=== PATIENT | female | born 1955 | race Caucasian/White ===

== ENCOUNTER → 2016-10-03 | Outpatient (CLI) | payer BC ==
[~2016-10-03] MED LIST: ACT/45 PO; AMLO-114 PO; ASPI325T39 PO; ASPI81TA28 PO; ATOR-24 PO; CETI10TA84 PO; CLOP1TAB15 PO; FERR324T4 PO; FLV1 PO; GABA-113 PO; GABA1CAP PO; GLIP-197 PO; HYDR-5688 PO; ISOS60TA25 PO; LANS30CA41 PO; METF850T PO; METO25TA3 PO; NITR0.4S UT; ROSU20TA PO; SERT50TA PO; TAMO20TA9 PO; VALS320T2 PO; ZOLP1TAB PO
--- NOTE | 2016-10-03 15:07 | MAMMOGRAPHY REPORT ---
UNILATERAL RIGHT DIGITAL SCREENING MAMMOGRAM TOMOSYNTHESIS WITH CAD: 10/03/2016 CLINICAL HISTORY: Asymptomatic. Personal history of breast cancer. TECHNIQUE: Breast tomosynthesis in addition to standard 2D mammography was performed. Current study was also evaluated with a Computer Aided Detection (CAD) system. Right CC and MLO 2-D and tomosynt hesis images were obtained. COMPARISON: Comparison is made to exams dated: 10/03/2015 mammogram, 09/28/2014 mammogram, 08/24/2013 mammogram, 04/01/2012 mammogram, 12/27/2010 mammogram, and 08/02/2009 mammogram - [facility]. BREAST COMPOSITION: The tissue of the right breast is almost entirely fatty. FINDINGS: No suspicious masses, calcifications, or areas of architectural distortion are noted in t he right breast. There has been no significant interval change compared to prior exams. IMPRESSION: ACR BI-RADS CATEGORY 1: NEGATIVE There is no mammographic evidence of malignancy. A 1 year screening mammogram is recommended. The p atient will receive written notification of the results. Approximately 10% of breast cancers are not detected with mammography. A negative mammographic repor t should not delay biopsy if a clinically suggestive mass is present. Niharika Ford M.D. ah/:10/03/2016 12:50:39 Counter Top Assembler: Jerilyn CORDERO)(M), [facility] letter sent: Normal 1/2 BI-RADS Code: ACR BI-RADS Category 1: Negative
== END | disposition home or self-care (01) ==
LOC: C.MAMM 08:36
PROVIDERS: ATTEND Obstetrics & Gynecology
DX: Z12.31 Encounter for screening mammogram for malignant neoplasm of breast (principal); Z85.3 Personal history of malignant neoplasm of breast

== ENCOUNTER → 2017-02-05 | Outpatient (CLI) | payer BC ==
[~2017-02-05] MED LIST changes: +TAMO20TA47 PO; -TAMO20TA9 PO
== END | disposition home or self-care (01) ==
LOC: C.RDSM 15:00
PROVIDERS: ATTEND Orthopaedic Surgery Sports Medicine
DX: R52 Pain, unspecified (principal)

== ENCOUNTER → 2017-02-14 | Day surgery (SDC) | payer BC ==
[2017-02-06 09:37] VITALS: Ht 162.6 cm; Wt 120.5 kg
[~2017-02-14] VITALS: Ht 162.6 cm; Wt 120.5 kg
[~2017-02-14] MED LIST changes: -ASPI81TA28 PO; +ATROPINE SULFATE 0.1 MG/ML 5ML SYR IV PRN; +BUPIVACAINE 0.5 % 5 MG/1 ML PF 10ML VIAL ONE; +BUPIVACAINE/EPINEPHRINE 0.5% MPF 1:200,000 10 ML VIAL ONE; +CEFAZOLIN 3000 MG/65 ML D5W 65 ML IV SCH; +FENTANYL CITRATE INJ 50 MCG/1 ML 2 ML VIAL IV PRN; +FENTANYL CITRATE INJ 50 MCG/1 ML 2 ML VIAL ONE; -FERR324T4 PO; -GABA1CAP PO; -HYDR-5688 PO; +LABETALOL HCL IV 5 MG/ML 20ML IV PRN; +LACTATED RINGER'S 1000ML 1,000 ML IV SCH; +LIDOCAINE HCL 1% 20 ML VIAL ONE; +LIDOCAINE HCL 2% 2 ML VIAL (20MG/ML) ONE; +MIDAZOLAM HCL 1 MG/ML 2ML VIAL ONE; +MoRPHine SULFATE 2 MG/ML CARP IV PRN; +MoRPHine SULFATE 4 MG/ML 1 ML CARP\\VIAL IV PRN; +ONDANSETRON INJ 2 MG/ML 2 ML VIAL IV PRN; +OXYCODONE/ACETAMINOPHEN 5-325 TAB PO PRN; +PROPOFOL IV EMULSION 10 MG/ML 20 ML VIAL IV ONE; -ROSU20TA PO
--- NOTE | 2017-02-14 10:23 | History & Physical Bridge - SC ---
H&P Re-Evaluation Bridge Note: I have examined the patient, reviewed the History & Physical and in the interval since the performance of the History & Physical I have noted the following changes of clinical significance: No changes noted
--- NOTE | 2017-02-14 11:09 | [facility] Post Operative Brief Note ---
Immediate Operative Summary Operative Date Feb 14, 2017. Pre-Operative Diagnosis Right Ring Finger Trigger Digit Post-Operative Diagnosis Same Procedure(s) Performed Right Ring Finger Trigger Digit Release Surgeon Dr. Aguilar Senior Science Consultant Surgeon(s) Dr. Asencio Estimated Blood Loss 2 ml Findings Thickened R RF A1 felicita. Fluids (cc crystalloids) 300 Specimens Same Drains n/a Anesthesia Local + sedation Complication(s) None Disposition Recovery Room / PACU (Stable)
--- NOTE | 2017-02-14 11:13 | Discharge Instructions-SurgCtr ---
Discharge Instructions Date of Service Feb 14, 2017. Visit Reason for Visit: Right Ring Finger Trigger Digit Discharge Discharge Diagnosis / Problem: S/P Right Ring Finger Trigger release Discharge Goals Goal(s): Decrease discomfort, Improve function, Increase independence Medications Stopped Medications Name(s): Plavix, ASA and Metformin last taken 02/10/17 Activity Recommendations Activity Limitations: per Instructions/Follow-up section May Resume Sexual Activity: when tolerated Shower/Bathe: may shower/bathe in 3 days Driving or Machine Use: Not while on Narcotics Anesthesia . Post Anesthesia Instructions: If you have had General Anesthesia or IV Sedation: * Do not drive today. * Resume driving when surgeon permits. * Do not make important decisions or sign legal documents today. * Call surgeon for: 1. Temperature elevations greater than 101 degrees F. 2. Uncontrollable pain. 3. Excessive bleeding. 4. Persistent nausea and vomiting. 5. Medication intolerance (nausea, vomiting or rash). * For nausea and vomiting use only clear liquids such as: tea, soda, bouillon until nausea subsides, then gradually increase diet as tolerated. * If you have any concerns or questions, call your surgeon's office. If physician is unavailable and it is an emergency, call 911 or go to the nearest emergency room. . Instructions / Follow-Up Instructions / Follow-Up in 10-15 days. PT in 2-3 days. Diet Recommendations Home Diet: resume previous diet Procedures Procedures Performed: Right Ring Finger Trigger Digit Release Pending Studies Studies pending at discharge: no Medical Emergencies . Who to Call and When: Medical Emergencies: If at any time you feel your situation is an emergency, please call 911 immediately. . Non-Emergent Contact Non-Emergency issues call your: Surgeon Call Non-Emergent contact if: temperature is above 101.5, your pain is not controlled, wound has increased drainage, wound has increased redness . . "Provider Documentation" section prepared by Rafa Aguilar. .
--- NOTE | 2017-02-14 11:14 | [facility] Operative Report ---
Operative Report Operative Date Feb 14, 2017. Pre-Operative Diagnosis Right Ring Finger Trigger Digit Post-Operative Diagnosis Same Procedure(s) Performed Right Ring Finger Trigger Digit Release Surgeon Dr. Aguilar Assistant Nurse Manager Surgeon(s) Dr. Asencio Estimated Blood Loss 2 ml Findings Thickened R RF A1 felicita and adhesion between Flexor Superficialis and Deep tendons. Fluids (cc crystalloids) 300 Specimens Same Drains n/a Anesthesia Local + sedation Complication(s) None Disposition Recovery Room / PACU (Stable) Implants N/A Indications The patient is a 61 year old female with a painful right ring finger, trigger finger that has not responded to conservative treatment. The patient understands the risks of surgery, which include but are not limited to: bleeding , infection, re-operation, damage to nerves and arteries, and continued pain. The patient understands all of these instructions and explanations, all of their questions have been satisfactorily addressed. The patient has elected to proceed with surgery and the informed consent was signed. Description of Procedure The patient was taken to the Operating Room and placed in the supine position on the operating table. After a multidisciplinary time-out was performed identifying my initials on the right ring finger as the correct and operative limb, the patient agreed. Prior to the incision being made, 2 grams of intravenous Ancef were given. The right arm was prepped and draped in the usual Orthopaedic sterile fashion. 6 cc of a 50:50 mix of 1% Lidocaine and 0.5% Bupivacaine plain was injected along the planned incision and into the tendon sheath. After the local anesthetic had taken affect, a small 2 cm incision was made in miles crease. This was carried down to the A1 felicita of the right ring finger. The A1 felicita was incised and a small portion was excised for sample. The right angle clamp was used to deliver the flexor tendons into the wound. There was some adhesions along the flexor tendons which were gently removed. The tendon then glided without catching or locking. The patient was asked to move flex her ring finger and there was no catching or locking. The wound and tendon sheath were copiously irrigated. The skin was closed with 4-0 Nylon. The incision was covered with Xeroform, 4x4's, sterile cast padding and an MESERET. The sponge and needle counts were correct. I attest to the content of the Intraoperative Record and any orders documented therein. Any exceptions are noted below.
[2017-02-14 11:18] VITALS: TEMP 36.4
[2017-02-14 11:46] VITALS: BP 158/73; PULSE 54; O2SAT 99
--- NOTE | 2017-02-14 12:21 | Anesthesia Progress Nt - [facility] ---
Anesthesia Post Op Note Date & Time Feb 14, 2017 at 12:21 Vital Signs Pain Intensity: 0 Vital Signs Past 12 Hours Date Time Temp Pulse Resp B/P (MAP) Pulse Ox O2 Delivery O2 Flow Rate FiO2 02/14/17 11:46 54 18 158/73 (101) 99 Room Air 02/14/17 11:18 36.4 58 18 144/65 (91) 94 Room Air 02/14/17 09:50 36.6 55 16 126/70 (88) 94 Room Air Notes Mental Status: alert / awake / arousable, participated in evaluation Pt Amnestic to Procedure: Yes Nausea / Vomiting: adequately controlled Pain: adequately controlled Airway Patency, RR, SpO2: stable & adequate BP & HR: stable & adequate Hydration State: stable & adequate Anesthetic Complications: no major complications apparent
== END | disposition home or self-care (01) ==
LOC: X.SURG 09:21
PROVIDERS: ATTEND Orthopaedic Surgery Sports Medicine
DX: M65.341 Trigger finger, right ring finger (principal); I10 Essential (primary) hypertension; E78.5 Hyperlipidemia, unspecified; I25.10 Atherosclerotic heart disease of native coronary artery without angina pectoris; M06.9 Rheumatoid arthritis, unspecified; E66.9 Obesity, unspecified; Z85.3 Personal history of malignant neoplasm of breast; Z90.12 Acquired absence of left breast and nipple; Z90.49 Acquired absence of other specified parts of digestive tract; Z79.82 Long term (current) use of aspirin

== ENCOUNTER 2017-06-24 12:21 | Emergency (ER) | payer BC ==
[~2017-06-24] VITALS: Ht 162.6 cm; Wt 115.0 kg
[~2017-06-24 12:21] MED LIST changes: -ATROPINE SULFATE 0.1 MG/ML 5ML SYR IV PRN; -BUPIVACAINE 0.5 % 5 MG/1 ML PF 10ML VIAL ONE; -BUPIVACAINE/EPINEPHRINE 0.5% MPF 1:200,000 10 ML VIAL ONE; -CEFAZOLIN 3000 MG/65 ML D5W 65 ML IV SCH; -FENTANYL CITRATE INJ 50 MCG/1 ML 2 ML VIAL IV PRN; -FENTANYL CITRATE INJ 50 MCG/1 ML 2 ML VIAL ONE; -LABETALOL HCL IV 5 MG/ML 20ML IV PRN; -LACTATED RINGER'S 1000ML 1,000 ML IV SCH; -LANS30CA41 PO; -LIDOCAINE HCL 1% 20 ML VIAL ONE; -LIDOCAINE HCL 2% 2 ML VIAL (20MG/ML) ONE; -MIDAZOLAM HCL 1 MG/ML 2ML VIAL ONE; -MoRPHine SULFATE 2 MG/ML CARP IV PRN; -MoRPHine SULFATE 4 MG/ML 1 ML CARP\\VIAL IV PRN; -ONDANSETRON INJ 2 MG/ML 2 ML VIAL IV PRN; -OXYCODONE/ACETAMINOPHEN 5-325 TAB PO PRN; -PROPOFOL IV EMULSION 10 MG/ML 20 ML VIAL IV ONE; -TAMO20TA47 PO; +TAMO20TA9 PO
[2017-06-24 12:24] VITALS: TEMP 36.9; Ht 162.6 cm; Wt 115.0 kg
[2017-06-24] MEDS ORDERED: OPTIRAY 320 IV PRN (13:00)
--- NOTE | 2017-06-24 13:05 | DIAGNOSTIC IMAGING REPORT ---
CHEST ONE VIEW PORTABLE CLINICAL HISTORY: Acute change in mental status COMPARISON STUDY: 02/23/2014 FINDINGS: The heart is mildly enlarged. Slight interstitial prominence is likely related to technical factors given the patient's body habitus. There is no focal pulmonary consolidation. There are no pleural effusions.[ IMPRESSION: Mild cardiomegaly. No evidence of focal pulmonary consolidation Electronically signed by: Marshall You M.D. 06/24/2017 1:04 PM Dictated Date/Time: 06/24/2017 1:03 PM
[2017-06-24 13:53] LABS: BASO % 0.5 %; BASO ABS # 0.03 K/uL (0-0.2); EOS % 5.8 %; EOS ABS # 0.33 K/uL (0-0.5); HEMATOCRIT 35.3 % (37-47); HEMOGLOBIN 11.6 g/dL (12.0-16.0); IG# 0.01 K/uL (0.00-0.02); LYMPH % 38.8 %; LYMPH ABS # 2.22 K/uL (1.2-3.4); MEAN CELL VOLUME 84.2 fL (80-100); MEAN CORPUSCULAR HEMOGLOBIN 27.7 pg (25-34); MEAN CORPUSCULAR HGB CONC 32.9 g/dl (32-36); MEAN PLATELET VOLUME 10.1 fL (7.4-10.4); MONO % 13.6 %; MONO ABS # 0.78 K/uL (0.11-0.59); NEUT % 41.1 %; NEUT ABS # 2.35 K/uL (1.4-6.5); PLATELET COUNT 252 K/uL (130-400); RED CELL DISTRIBUTION WIDTH CV 15.3 % (11.5-14.5); RED CELL DISTRIBUTION WIDTH SD 47.1 fL (36.4-46.3); WHITE BLOOD COUNT 5.72 K/uL (4.8-10.8)
[2017-06-24 14:11] LABS: CALCIUM 8.4 mg/dl (8.5-10.1); CREATININE 0.89 mg/dl (0.60-1.20); POTASSIUM 3.5 mmol/L (3.5-5.1)
--- NOTE | 2017-06-24 14:45 | DIAGNOSTIC IMAGING REPORT ---
CT HEAD WITHOUT CONTRAST (CT) CLINICAL HISTORY: Headache and blurry vision COMPARISON STUDY: 02/23/2014 TECHNIQUE: Axial CT of the brain is performed from the vertex to the skull base. IV contrast was not administered for this examination. A dose lowering technique was utilized adhering to the principles of ALARA. CT DOSE: FINDINGS: No intra or extra-axial mass lesions are visualized. There is no CT evidence of acute cortical infarction. There is no evidence of midline shift. There is no acute hemorrhage. No calvarial fractures are visualized. There are minimal white matter hypodensities likely on a small vessel basis. There is no evidence of pathologic ventricular dilatation. There is no evidence of acute sinusitis. There is metallic artifact in the right medial temporal region, likely secondary to prior aneurysm endovascular occlusion. IMPRESSION: No acute intracranial findings Electronically signed by: Marshall You M.D. 06/24/2017 2:43 PM Dictated Date/Time: 06/24/2017 2:40 PM
--- NOTE | 2017-06-24 15:08 | DIAGNOSTIC IMAGING REPORT ---
CTA ANGIOGRAPHY OF THE HEAD CLINICAL HISTORY: Headache. Left-sided visual disturbance. COMPARISON STUDY: Head CT February 23, 2014 and June 24, 2017. TECHNIQUE: Helical axial images of the head were obtained following uneventful intravenous administration of 119 cc of Optiray 320. A dose lowering technique was utilized adhering to the principles of ALARA. FINDINGS: The CTA of the neck will be reported separately. Endovascular coils are noted within the right MCA aneurysm. Evaluation is difficult given streak artifact but no definite residual aneurysm filling is noted. The bilateral M1, M2, A1 and A2 segments are patent. No additional intracranial aneurysms are identified. Posterior circulation is also intact. No dissection is noted within the major intracranial vessels. No acute intracranial hemorrhage is identified on this contrast enhanced exam. There is mild mucosal thickening of the sinuses. IMPRESSION: 1. 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 2. No additional intracranial aneurysms. 3. Moderate atherosclerotic plaque within the bilateral cavernous carotids without significant stenosis. 4. No abrupt vessel cut off identified. Electronically signed by: Wero Castillo M.D. 06/24/2017 3:07 PM Dictated Date/Time: 06/24/2017 3:00 PM
--- NOTE | 2017-06-24 15:09 | DIAGNOSTIC IMAGING REPORT ---
CT NECK ANGIO WITH CONTRAST CLINICAL HISTORY: Headache. Blurry vision. Right carotid stenosis. COMPARISON STUDY: 02/26/2014 TECHNIQUE: CT angiography was performed from the aortic arch to the skull base. MIP imaging was performed. The patient was scanned in a dynamic helical fashion during intravenous administration of 119 cc of Optiray 320. A dose lowering technique was utilized adhering to the principles of ALARA. CT DOSE: 1191.82 mGy.cm Technique: CT angiogram of the carotid and vertebral arteries was obtained using intravenous contrast and 3-D reconstruction. NASCET criteria was utilized. Findings: There are minimal patchy airspace opacities within the right upper lobe, right inflammatory/postinflammatory. There There is a stent present with thin the right common carotid and proximal right internal carotid. Because of artifact from the stent wall and artifact from dense contrast within the right internal jugular vein, stent patency cannot be assessed. The common carotid is patent proximal to the stent and the internal carotid is patent distal to the stent. 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 There is no evidence of aneurysm. There is no evidence of dissection. There is no evidence of hemodynamically significant vertebral stenosis. There is no evidence of vertebral dissection. IMPRESSION: 1. No evidence of vertebral artery stenosis or dissection 2. No evidence of hemodynamically significant left internal carotid artery stenosis or dissection 3. There is a stent present within the right common carotid and proximal right internal carotid artery. Because of artifact from the stent wall and artifact from dense contrast within the right internal jugular vein, stent patency cannot be directly assessed. There is indirect evidence that the stent is patent, as contrast is visualized within the common carotid artery proximal to the stent, and within the internal carotid artery distal to the stent. Electronically signed by: Marshall You M.D. 06/24/2017 3:08 PM Dictated Date/Time: 06/24/2017 2:59 PM
[2017-06-24 16:00] VITALS: BP 112/64; PULSE 56; O2SAT 97
--- NOTE | 2017-06-24 19:13 | EMERGENCY ROOM VISIT NOTE ---
History Report prepared by Pippa: Pierce Gu Under the Supervision of: Dr. Jeffery Pérez D.O. First contact with patient: 12:29 Chief Complaint: REFERRED BY DOCTOR Stated Complaint: BLOCKAGE IN NECK DR REFERRED History of Present Illness The patient is a 62 year old female who presents to the Emergency Room with complaints of waxing and waning neurologic symptoms beginning six months ago. Her symptoms include visual changes, difficulty with balance, and mild left arm weakness. Symptoms have not changed over the past 6 months. She states that her balance problems involve her leaning to the right. The patient's balance problems are worsened after standing suddenly. She states that her visual changes involve slightly blurred vision, "as if I am seeing through a film". She notes that she has a history of bilateral cataract surgery. The patient's arm weakness is primarily with grasp. She states that all of her symptoms began around the same time. She was referred to the ED by her sales communications manager for possible blockage of her right carotid artery. The patient had MRA neck (2013) which showed high grade stenosis of the proximal right ICA. 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 She was evaluated by neurosurgery at this time. Pt currently denies headache, fevers, chest pain, shortness of breath, nausea, vomiting, diarrhea, pain with urination, and melena. Source of History: patient Onset: Six months ago Quality: other (neurologic symptoms) Timing: waxes/wanes Associated Symptoms: + weakness (mild left arm), No fevers, No headache, No chest pain, No SOB, No nausea, No vomiting, No diarrhea, No urinary symptoms Note: Symptoms: visual changes, difficulty with balance. Review of Systems See HPI for pertinent positives & negatives. A total of 10 systems reviewed and were otherwise negative. Past Medical & Surgical Medical Problems: (1) Coronary artery disease (2) H/O breast mastectomy of left breast (3) H/O cardiac stents Family History Diabetes mellitus FATHER MOTHER SISTER FH: CAD (coronary artery disease) FATHER MOTHER FH: brain cancer FATHER Social History Smoking Status: Former Smoker Drug Use: none Marital Status: Housing Status: lives with significant other Occupation Status: employed Current/Historical Medications Scheduled Amlodipine (Norvasc), 10 MG PO QAM Atorvastatin (Lipitor), 40 MG PO QAM Clopidogrel (Plavix), 75 MG PO QAM Folic Acid (Folic Acid), 1 MG PO QAM Gabapentin (Neurontin), 300 MG PO BID Glipizide (Glipizide Er), 5 MG PO BID Isosorbide Mononitrate Ext Rel (Imdur Ext Rel), 60 MG PO QAM Metformin Hcl (Glucophage), 850 MG PO TID Metoprolol Succinate (Toprol Xl), 25 MG PO QAM Nitroglycerin (Nitrostat), 0.4 MG UT PRN Pioglitazone Hcl (Actos), 45 MG PO QAM Sertraline (Zoloft), 50 MG PO QAM Valsartan/Hctz (Diovan Hct 320MG/25MG), 1 TAB PO QAM Zolpidem Tartrate (Ambien Er), 12.5 MG PO HS Scheduled PRN Cetirizine (Zyrtec), 10 MG PO DAILY PRN for Cough Allergies Coded Allergies: Latex (Verified Allergy, Unknown, RASH, 06/24/17) NO KNOWN DRUG ALLERGIES (Verified Allergy, Unknown, ., 06/24/17) Adhesives (Verified Adverse Reaction, Unknown, RASH, 06/24/17) Physical Exam Vital Signs Date Time Temp Pulse Resp B/P (MAP) Pulse Ox O2 Delivery O2 Flow Rate FiO2 06/24/17 16:00 56 17 112/64 97 06/24/17 14:19 55 18 110/46 94 Room Air 06/24/17 12:24 36.9 60 18 151/74 94 Room Air Physical Exam GENERAL: Sitting up in bed, alert, well appearing, well nourished, no distress, non-toxic EYE EXAM: normal conjunctiva. PERRL and EOM's intact. OROPHARYNX: no exudate, no erythema, lips, buccal mucosa, and tongue normal and mucous membranes are moist NECK: supple, no nuchal rigidity, no adenopathy, non-tender LUNGS: Clear to auscultation. Normal chest wall mechanics HEART: no murmurs, S1 normal and S2 normal ABDOMEN: abdomen soft, non-tender, normo-active bowel sounds, no masses, no rebound or guarding. BACK: Back is symmetrical on inspection and there is no deformity, no midline tenderness, no CVA tenderness. SKIN: no rashes and no bruising UPPER EXTREMITIES: upper extremities are grossly normal. LOWER EXTREMITIES: No pitting edema. NEURO EXAM: Normal sensorium, cranial nerves II-XII intact, normal speech, no weakness of arms, no weakness of legs. No drift. Finger to nose intact. Gross sensation intact. Medical Decision & Procedures ER Provider Diagnostic Interpretation: Radiology results as stated below per my review and the radiologist's interpretation: CT HEAD WITHOUT CONTRAST (CT) FINDINGS: No intra or extra-axial mass lesions are visualized. There is no CT evidence of acute cortical infarction. There is no evidence of midline shift. There is no acute hemorrhage. No calvarial fractures are visualized. There are minimal white matter hypodensities likely on a small vessel basis. There is no evidence of pathologic ventricular dilatation. There is no evidence of acute sinusitis. There is metallic artifact in the right medial temporal region, likely secondary to prior aneurysm endovascular occlusion. IMPRESSION: No acute intracranial findings Electronically signed by: Marshall You M.D. 06/24/2017 2:43 PM CTA ANGIOGRAPHY OF THE HEAD FINDINGS: The CTA of the neck will be reported separately. Endovascular coils are noted within the right MCA aneurysm. Evaluation is difficult given streak artifact but no definite residual aneurysm filling is noted. The bilateral M1, M2, A1 and A2 segments are patent. No additional intracranial aneurysms are identified. Posterior circulation is also intact. No dissection is noted within the major intracranial vessels. No acute intracranial hemorrhage is identified on this contrast enhanced exam. There is mild mucosal thickening of the sinuses. IMPRESSION: 1. 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 2. No additional intracranial aneurysms. 3. Moderate atherosclerotic plaque within the bilateral cavernous carotids without significant stenosis. 4. No abrupt vessel cut off identified. Electronically signed by: Wero Castillo M.D. 06/24/2017 3:[address] NECK ANGIO WITH CONTRAST Findings: There are minimal patchy airspace opacities within the right upper lobe, right inflammatory/postinflammatory. There There is a stent present with thin the right common carotid and proximal right internal carotid. Because of artifact from the stent wall and artifact from dense contrast within the right internal jugular vein, stent patency cannot be assessed. The common carotid is patent proximal to the stent and the internal carotid is patent distal to the stent. 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 There is no evidence of aneurysm. There is no evidence of dissection. There is no evidence of hemodynamically significant vertebral stenosis. There is no evidence of vertebral dissection. IMPRESSION: 1. No evidence of vertebral artery stenosis or dissection 2. No evidence of hemodynamically significant left internal carotid artery stenosis or dissection 3. There is a stent present within the right common carotid and proximal right internal carotid artery. Because of artifact from the stent wall and artifact from dense contrast within the right internal jugular vein, stent patency cannot be directly assessed. There is indirect evidence that the stent is patent, as contrast is visualized within the common carotid artery proximal to the stent, and within the internal carotid artery distal to the stent. Electronically signed by: Marshall You M.D. 06/24/2017 3:08 PM CHEST ONE VIEW PORTABLE FINDINGS: The heart is mildly enlarged. Slight interstitial prominence is likely related to technical factors given the patient's body habitus. There is no focal pulmonary consolidation. There are no pleural effusions.[ IMPRESSION: Mild cardiomegaly. No evidence of focal pulmonary consolidation Electronically signed by: Marshall You M.D. 06/24/2017 1:04 PM Laboratory Results 06/24/17 13:30 Red Blood Count 4.19, Mean Corpuscular Volume 84.2, Mean Corpuscular Hemoglobin 27.7, Mean Corpuscular Hemoglobin Concent 32.9, Mean Platelet Volume 10.1, Neutrophils (%) (Auto) 41.1, Lymphocytes (%) (Auto) 38.8, Monocytes (%) (Auto) 13.6, Eosinophils (%) (Auto) 5.8, Basophils (%) (Auto) 0.5, Neutrophils # (Auto ) 2.35, Lymphocytes # (Auto) 2.22, Monocytes # (Auto) 0.78, Eosinophils # (Auto ) 0.33, Basophils # (Auto) 0.03 06/24/17 13:30 Test 06/24/17 13:30 White Blood Count 5.72 K/uL (4.8-10.8) Red Blood Count 4.19 M/uL (4.2-5.4) Hemoglobin 11.6 g/dL (12.0-16.0) Hematocrit 35.3 % (37-47) Mean Corpuscular Volume 84.2 fL (80-100) Mean Corpuscular Hemoglobin 27.7 pg (25-34) Mean Corpuscular Hemoglobin Concent 32.9 g/dl (32-36) Platelet Count 252 K/uL (130-400) Mean Platelet Volume 10.1 fL (7.4-10.4) Neutrophils (%) (Auto) 41.1 % Lymphocytes (%) (Auto) 38.8 % Monocytes (%) (Auto) 13.6 % Eosinophils (%) (Auto) 5.8 % Basophils (%) (Auto) 0.5 % Neutrophils # (Auto) 2.35 K/uL (1.4-6.5) Lymphocytes # (Auto) 2.22 K/uL (1.2-3.4) Monocytes # (Auto) 0.78 K/uL (0.11-0.59) Eosinophils # (Auto) 0.33 K/uL (0-0.5) Basophils # (Auto) 0.03 K/uL (0-0.2) RDW Standard Deviation 47.1 fL (36.4-46.3) RDW Coefficient of Variation 15.3 % (11.5-14.5) Immature Granulocyte % (Auto) 0.2 % Immature Granulocyte # (Auto) 0.01 K/uL (0.00-0.02) Anion Gap 5.0 mmol/L (3-11) Est Creatinine Clear Calc Drug Dose 79.5 ml/min Estimated GFR () 79.4 Estimated GFR (Non- 68.5 BUN/Creatinine Ratio 28.5 (10-20) Calcium Level 8.4 mg/dl (8.5-10.1) Laboratory results per my review. ECG Indication: weakness Rate (beats per minute): 57 Rhythm: sinus bradycardia Findings: Q waves (Inferior), other (Normal axis. ) ED Course ED COURSE: Vital signs were reviewed and showed hypertension. The patients medical record was reviewed The above diagnostic studies were performed and reviewed. ED treatments and interventions as stated above. 1234: The patient was evaluated in room B4B. A complete history and physical examination was performed. 1550: Upon reevaluation, the patient is resting comfortably. She confirms that her symptoms are not new. I discussed my findings with the patient and she understands and agrees with the treatment plan. She is scheduled to see her PCP this week, and her neurosurgeon within two weeks. Based on the patients age, coexisting illnesses, exam and lab findings the decision to treat as an outpatient was made. The patient remained stable while under my care. The patient appeared well at the time of discharge. Medical Decision Differential Diagnosis includes but is not limited to ischemic Stroke, hemorrhagic stroke, bells palsy, mass, neoplasm, migraine headache, seizure, subarachnoid hemorrhage, TIA, and transient global amnesia. Patient is a 62-year-old female who presents to ER referred in by cardiology. She was referred in for being off balance for the past 6 months associated with blurry vision in her left eye and subjective weakness with grasp of the left extremity. On exam she is completely neurologically intact. I noticed no symptoms with ambulation. CBC, BMP was unremarkable. HCG was slightly elevated however. With her history of right carotid stenosis status post stent and cerebral aneurysm CTA of the head and neck was performed. This showed flow before and after the stent. CT of the head was unremarkable. CT head was normal. Visual acuity was 20/30 out of bilateral eyes. I discussed my findings with neurology. They believe that this is symptoms of present for the past 6 months this worked up as an outpatient. I do feel this is reasonable. She has an appointment with her neurosurgeon within 2 weeks and with her PCP within 1 week. She will likely benefit from an outpatient MRI which she already has scheduled. Patient family were updated bedside. She is discharged neurologically intact to follow-up with her PCP as an outpatient. Discussed with Pt concerning signs and symptoms to watch out for. Pt was instructed to follow up with their PCP and discussed with the patient their option to return to the ED at anytime for persistent or worsening symptoms. The appropriate anticipatory guidance and out-patient management, including indications for return to the emergency department, were explained at length to the patient and understood. Medication Reconcilliation Current Medication List: was personally reviewed by me Blood Pressure Screening Patient's blood pressure: Elevated blood pressure Blood pressure disposition: Elevated BP felt to be situational Consults Time Called: 1525 Consulting Physician: Dr. Cordon - Neurology Returned Call: [phone] I reviewed the patient's case with Dr. Cordon. She feels that if the patient' s symptoms have been present for six months, that she would be safe for discharge with outpatient follow up. Impression Primary Impression: Weakness Additional Impression: Dizzy Scribe Attestation The scribe's documentation has been prepared under my direction and personally reviewed by me in its entirety. I confirm that the note above accurately reflects all work, treatment, procedures, and medical decision making performed by me. Departure Information Dispostion Home / Self-Care Referrals Carmelo Juárez M.D. (PCP) Forms HOME CARE DOCUMENTATION FORM, IMPORTANT VISIT INFORMATION, WORK / SCHOOL INSTRUCTIONS Patient Instructions ED Dizziness [facility], ED Weakness [facility], My [facility] Additional Instructions Please follow up with your primary care doctor with in the next 24 hours. Any worsening of your symptoms, please return to the ED immediately. This includes any fevers greater than 100.4, worsening pain, chest pain, shortness breath, persistent nausea, vomiting, unable to eat or drink, or any other concerning signs or symptoms from your standpoint. You were given medications during this visit that will inhibit your ability to drive, operate machinery and work. Please do NOT drive, operate machinery, drink alcohol or work for the next 12hrs. Problem Qualifiers
== END 2017-06-24 16:00 | disposition home or self-care (01) ==
LOC: C.EDB 12:24
DX: R53.1 Weakness (principal); R42 Dizziness and giddiness; R00.1 Bradycardia, unspecified; I25.10 Atherosclerotic heart disease of native coronary artery without angina pectoris; Z85.3 Personal history of malignant neoplasm of breast; Z98.61 Coronary angioplasty status; Z87.891 Personal history of nicotine dependence; Z79.84 Long term (current) use of oral hypoglycemic drugs; Z79.899 Other long term (current) drug therapy; Z91.040 Latex allergy status; Z91.09 Other allergy status, other than to drugs and biological substances; Z83.3 Family history of diabetes mellitus; Z82.49 Family history of ischemic heart disease and other diseases of the circulatory system; Z85.841 Personal history of malignant neoplasm of brain

== ENCOUNTER → 2017-10-06 | Outpatient (CLI) | payer BC ==
[~2017-10-06] MED LIST changes: -ASPI325T39 PO; -METO25TA3 PO; +METO25TA4 PO; -TAMO20TA9 PO
--- NOTE | 2017-10-06 14:13 | MAMMOGRAPHY REPORT ---
UNILATERAL RIGHT DIGITAL SCREENING MAMMOGRAM TOMOSYNTHESIS WITH CAD: 10/06/2017 CLINICAL HISTORY: Asymptomatic. Personal history of breast cancer. TECHNIQUE: Right breast tomosynthesis in addition to standard 2D mammography was performed. Current study was also evaluated with a Computer Aided Detection (CAD) system. COMPARISON: Comparison is made to exams dated: 10/03/2016 mammogram, 10/03/2015 mammogram, 09/28/2014 m ammogram, 08/24/2013 mammogram, 12/23/2012 mammogram, and 04/01/2012 mammogram - [facility]. BREAST COMPOSITION: The tissue of the right breast is almost entirely fatty. FINDINGS: The parenchymal pattern is unchanged. No developing mass, architectural distortion or clus ter of suspicious microcalcifications is seen. IMPRESSION: ACR BI-RADS CATEGORY 2: BENIGN There is no mammographic evidence of malignancy. A 1 year screening mammogram is recommended. The pa tient will receive written notification of the results. Approximately 10% of breast cancers are not detected with mammography. A negative mammographic report should not delay biopsy if a clinically suggestive mass is present. Melinda Bernal M.D. ay/:10/06/2017 10:17:56 Casting Cleaner: Elise COKER(Elizabeth)(Marco), [facility] letter sent: Normal 1/2 BI-RADS Code: ACR BI-RADS Category 2: Benign
== END | disposition home or self-care (01) ==
LOC: C.MAMM 09:39
PROVIDERS: ATTEND Obstetrics & Gynecology
DX: Z12.31 Encounter for screening mammogram for malignant neoplasm of breast (principal); Z85.3 Personal history of malignant neoplasm of breast; Z90.12 Acquired absence of left breast and nipple

== ENCOUNTER 2020-12-26 06:54 | Observation (INO) ==
--- NOTE | 2020-12-26 07:58 | History & Physical Bridge Note ---
Date of Service December 26, 2020 History & Physical Bridge Note I have examined the patient, reviewed the History & Physical and in the interval since the performance of the History & Physical I have noted the following changes of clinical significance: no changes noted. Reports historry of left sided chest radiation therapy secondary to breast cancer.
--- NOTE | 2020-12-26 07:59 | Pre Anesthesia Assessment ---
Date of Service December 26, 2020 Pre Sedation Assessment Vital Signs Temp Pulse Pulse Resp BP Pulse Ox 12/27/20 08:00 54 L 12/27/20 07:16 37 C 56 L 18 166/88 H 97 12/27/20 04:44 36.9 C 54 L 18 129/73 95 12/27/20 00:00 56 L 12/26/20 23:48 37.2 C 60 18 142/60 H 96 12/26/20 18:37 37.1 C 57 L 19 114/60 95 12/26/20 16:00 37.1 C 54 L 16 122/74 93 12/26/20 14:45 36.6 C 50 L 16 119/68 93 12/26/20 14:00 36.8 C 54 L 16 107/73 93 12/26/20 13:00 37.2 C 54 L 16 122/66 95 12/26/20 12:27 37 C 54 L 16 120/73 96 12/26/20 12:00 36.6 C 53 L 18 125/75 94 12/26/20 11:28 36.6 C 60 16 157/72 H 90 12/26/20 11:15 36.6 C 56 L 16 142/73 H 94 Cardiovascular RRR, no murmur, no edema + femoral pulses present and + radial pulses present no edema Respiratory normal respiratory effort, lungs clear to auscultation Pre-Sedation Airway Assessment Smoking Status: Former smoker Short, Thick Neck: No Thyromental Distance: < 3.5 Finger Breadths Oral Cavity: + WNL Mallampati Class: III ASA: ASA3 NPO Status Date of Last Intake of Fluids: 12/25/20 Time of Last Intake of Fluids: 22:00 Date of Last Intake of Solid Food: 12/25/20 Time of Last Intake of Solid Foods: 22:00 Notes The planned sedation has been discussed with the patient. Informed Consent was obtained. I have identified the patient, determined the appropriateness of sedation and have assessed the patient immediately prior to the procedure. All medicine(s) and interventions are by my order.
[2020-12-26] MEDS ORDERED: MIDAZOLAM HCL 1 MG/ML 2ML VIAL ONE ×2 (08:05→08:50)
[2020-12-26] MEDS ORDERED: niCARdipine HCL INJ 2.5 MG/ML 10 ML AMP ONE (08:05)
[2020-12-26] MEDS ORDERED: HEPARIN (PORCINE) 1000 UNIT/ML 10 ML (CATH LAB USE ONLY) ONE (08:05)
[2020-12-26] MEDS ORDERED: fentaNYL citrate 100 MCG/2 ML VIAL ONE (08:05)
[2020-12-26] MEDS ORDERED: NITROGLYCERIN/D5W 100MCG/ML 20ML SYR ONE (08:06)
[2020-12-26] MEDS ORDERED: ADENOSINE IV SOLN 3 MG/ML 20 ML VIAL IV ONE (08:59)
--- NOTE | 2020-12-26 08:59 | Post Anesthesia Assessment ---
Date of Service December 26, 2020 Post Sedation Assessment Vital Signs Temp Pulse Pulse Resp BP Pulse Ox 12/27/20 08:00 54 L 12/27/20 07:16 37 C 56 L 18 166/88 H 97 12/27/20 04:44 36.9 C 54 L 18 129/73 95 12/27/20 00:00 56 L 12/26/20 23:48 37.2 C 60 18 142/60 H 96 12/26/20 18:37 37.1 C 57 L 19 114/60 95 12/26/20 16:00 37.1 C 54 L 16 122/74 93 12/26/20 14:45 36.6 C 50 L 16 119/68 93 12/26/20 14:00 36.8 C 54 L 16 107/73 93 12/26/20 13:00 37.2 C 54 L 16 122/66 95 12/26/20 12:27 37 C 54 L 16 120/73 96 12/26/20 12:00 36.6 C 53 L 18 125/75 94 12/26/20 11:28 36.6 C 60 16 157/72 H 90 12/26/20 11:15 36.6 C 56 L 16 142/73 H 94 Recovery Score Activity: Moves 4 extremities Respiration: Deep Breath/Cough Circulation: +/-20% PreAnes Value Consciousness: Arouseable (by name) Oxygen Saturation: O2 needed for >90% Discharge Sedation Level of Care: Phase I Post Sedation Plan On clinical assessment, the patient appears to have tolerated the sedation without complications. Patient is recovering as anticipated. Patient will continue to be monitored by nursing and may be discharged when sedation discharge criteria are met per below protocol. Upon Completions of procedure up to 15 minutes continue every 5 minute vital signs and the P.A.R. score; then discharge to a Phase I or Fast Track to Phase II per the following guidelines: * Discharge Patient to appropriate Phase II area if PAR is 8 or greater or return to pre- procedure baseline. The post - procedure orders will be as directed. * If PAR score is less than 8 or not return to pre-procedure baseline then patient will follow Phase I monitoring till PAR is reached for Phase II. The Phase I may be done in procedure room or may call to secure a Phase I area. * If naloxone or flumazenil are used for reversal, hold in Phase I for continued monitoring from when last reversal dose was given for a minimum of 60 minutes or longer pending the nurse and/or physician discretion of patient condition before discharge to Phase II. Please call the Sedation Physician to re-evaluate and complete post-note for discharge to Phase II area. Do NOT discharge from procedure sedation or Phase 1 until post- sedation evaluation note is complete by procedure /sedation MD Sedation Discharge Instructions to be given to the patient at discharge to home.
--- NOTE | 2020-12-26 09:20 | Cardiac Catheterization ---
Cardiac Cath Procedure Full Procedure Date December 26, 2020 Pre-Procedure Diagnosis Pre-Procedure Diagnosis: Angina, CAD and Cardiothoracic Symptom AUC Score AUC Score: 7 Post-Procedure Diagnosis Post-Procedure Diagnosis: Severe CAD and Elevated Intracardiac Pressures Procedure(s) Performed Procedure(s) Performed: Coronary Angiography and Left Heart Cath Education Rn Bjorn Quinones DO Exterminator Helper(s) Showers RN Estimated Blood Loss Estimated Blood Loss: 5cc Summary of Findings 70% mid LAD Patent proximal LAD stent with 20% stenosis distal to stent. OM2 proximal stent with 30% in-stent stenosis 80% mid Lcx (small vessel) 70% distal Lcx (small vessel) Diffuse moderate RCA disease with 50% ostial RPDA Hemodynamics Rest Ao:: 151/57/100 Final Ao: 163/66/104 LV: 158/14/24 Recommendations Recommendations: Management Recommendatons (FFR mid LAD, medical management of the mid and distal left circumflex due to small caliber of vessel.) Radiation Exposure (mGy) 1050 Contrast (mls) 50 Fluids (cc crystalloids) Fluids (cc crystalloids): 75 Nss Anesthesia Moderate sedation. Start 0815. End 0859. Sedation monitor: MIROSLAVA Story I attest to the content of the Intraoperative Record and any orders documented therein. Any exceptions are noted below. ACC Data: [employer] Cardiac Status Clinical evaluation leading to the procedure Patient presented for routine cardiology follow-up and preoperative for stratification. ECG demonstrating new deep T wave inversions in the anterior leads. Patient describing angina with emotional stress. Functional capacity limited due to chronic knee pain. She is contemplating knee replacement in the future. CAD Presenation: Stable angina Anginal Classification: CCS IV Heart Failure: No Cardiogenic Shock within 24 Hours: No Cardiac Arrest within 24 Hours: No Imaging Studies Past 6 Months: Yes Stress Studies Past 6 Months: No Coronary Anatomy Left Main (% Stenosis): Normal LAD (% Stenosis): Proximal (Stent patent with 20% stenosis distal to stent.), Mid (70%) and Distal (10-20% diffuse) D1 (% Stenosis): Ostial (30%), Proximal (bifurcates proximally) and Mid (10% diffuse) Circumflex (% Stenosis): Mid (80% small AV groove at bifurcation of OM2) and Distal (70%) OM1 (% Stenosis): Normal OM2 (% Stenosis): Proximal (stent patient with 30% ISR) and Mid (10% diffuse) L PL1 (% Stenosis): Mid (10-20% diffuse, small vessel) L PL2 (% Stenosis): Mid (10-20% diffuse, small vessel) RCA (% Stenosis): Proximal (30% ), Mid (20-30% diffuse) and Distal (40% distal to RPDA) R PDA (% Stenosis): Ostial (50%, small vessel) R PL1 (% Stenosis): Mid (small vessel, 10-20% diffuse) R PL2 (% Stenosis): Mid (small vessel, 10-20% diffuse) AM (% Stenosis): Mid (50%, small vessel) Diagnostic Physicians Name: Bjorn Quinones DO Closure Device Recommendations: Management Recommendatons (FFR mid LAD, medical management of the mid and distal left circumflex due to small caliber of vessel.) Intraprocedure Events Significant Disection: No Perforation: No
[2020-12-26] MEDS ORDERED: CLOPIDOGREL BISULFATE 300 MG TAB ONE (09:30)
--- NOTE | 2020-12-26 10:23 | Communication Note ---
Date of Service: December 26, 2020 Patient seen in coverage of Dr. Bjorn Quinones. She had undergone LAD coronary stent, and reported chest discomfort in the post cardiac catheterization rec overy area. An EKG was performed, but the time of my assessment, her discomfort had completely resolved without intervention, after drinking a sip of water. EKG performed at 955 reveals sinus bradycardia at 59 bpm with first-degree AV block and T wave inversions in leads V3 to V6. Although the EKG is abnormal, it is actually relatively unchanged compared to her recent outpatient tracing performed 12/15/2020 which had prompted her cardiac catheterization. The deep T wave inversions in the lateral precordial leads observed on 12/15/2020 are actually less prominent on the present tracing. T wave inversion now noted in lead V3, however overall, tracing without significant interval change. We will continue to monitor. Patient to be admitted for routine post coronary stent care.Prior tracing printed from [facility] to be placed on chart.
--- NOTE | 2020-12-26 12:20 | Post Anesthesia Assessment ---
Date of Service December 26, 2020 Post Sedation Assessment Vital Signs Temp Pulse Resp BP Pulse Ox 12/26/20 11:28 97.9 F 60 16 157/72 H 90 12/26/20 11:15 97.9 F 56 L 16 142/73 H 94 12/26/20 10:58 97.9 F 53 L 16 144/80 H 94 12/26/20 10:45 97.9 F 57 L 16 149/81 H 94 12/26/20 10:10 55 L 18 168/78 H 95 12/26/20 09:55 55 L 18 156/78 H 94 12/26/20 09:40 58 L 18 165/85 H 94 12/26/20 07:21 98.4 F 60 16 156/81 H 96 Recovery Score Activity: Moves 4 extremities Respiration: Deep Breath/Cough Circulation: +/-20% PreAnes Value Consciousness: Fully Awake Oxygen Saturation: > 92% On Room Air Post Anesthesia Score: 10 Discharge Sedation Level of Care: Fast Track Phase II Post Sedation Plan On clinical assessment, the patient appears to have tolerated the sedation without complications. Patient is recovering as anticipated. Patient will continue to be monitored by nursing and may be discharged when sedation discharge criteria are met per below protocol. Upon Completions of procedure up to 15 minutes continue every 5 minute vital signs and the P.A.R. score; then discharge to a Phase I or Fast Track to Phase II per the following guidelines: * Discharge Patient to appropriate Phase II area if PAR is 8 or greater or return to pre- procedure baseline. The post - procedure orders will be as directed. * If PAR score is less than 8 or not return to pre-procedure baseline then patient will follow Phase I monitoring till PAR is reached for Phase II. The Phase I may be done in procedure room or may call to secure a Phase I area. * If naloxone or flumazenil are used for reversal, hold in Phase I for continued monitoring from when last reversal dose was given for a minimum of 60 minutes or longer pending the nurse and/or physician discretion of patient condition before discharge to Phase II. Please call the Sedation Physician to re-evaluate and complete post-note for discharge to Phase II area. Do NOT discharge from procedure sedation or Phase 1 until post- sedation evaluation note is complete by procedure /sedation MD Sedation Discharge Instructions to be given to the patient at discharge to home.
--- NOTE | 2020-12-26 12:24 | Cardiac Catheterization ---
ACC Data: Slab Inspector Cardiac Status Clinical evaluation leading to the procedure CAD Presenation: Unstable angina Anginal Classification: CCS III Heart Failure: No Cardiogenic Shock within 24 Hours: No Cardiac Arrest within 24 Hours: No Imaging Studies Past 6 Months: Yes Stress Studies Past 6 Months: No Diagnostic Physicians Name: Aryan Oneil MD Status: Elective Closure Device Percutaneous Entry Location: Radial Closure Device: Radial Band Recommendations: PCI without planned CABG PCI Indication: Unstable Angina Lesion Segment Name: Mid LAD Culprit Artery: Yes Stenosis Prior to Rx (%): 70 Chronic Total Occlusion: No IVUS: No FFR: Yes Ratio: less than or equal to 0.75% Pre-Procedure ANA Flow: 3 Previously Treated Lesion: No Lesion Complexity: Non-High/Non-C Lesion Length (mm): 12 Thrombus Present: No Bifurcation Lesion: No Guidewire Across Lesion: Stenosis Post-Procedure (%): 0 Post-Procedure ANA Flow: 3 Devices(s) Deployed: Yes Yes Intraprocedure Events Significant Disection: No Perforation: No Cardiac Cath Procedure Full Procedure Date December 26, 2020 Pre-Procedure Diagnosis Pre-Procedure Diagnosis: Angina and CAD AUC Score AUC Score: 7 Post-Procedure Diagnosis Post-Procedure Diagnosis: Severe CAD and Successful PCI Procedure(s) Performed Procedure(s) Performed: Coronary Angiography, Drug Eluting Stent and Fractional Flow Snyder Switchboard Operator Helper Aryan Oneil MD Snack Steward(s) Showers RN Estimated Blood Loss Estimated Blood Loss: 10 Medication(s) Medication(s): Clopidogrel, Fentanyl, Heparin, Lidocaine 1%, Nicardipine, Nitroglycerin and Versed Summary of Findings Indication: History of CAD, no chest symptoms and abnormal ECG. Access: 6 Fr right radial artery Catheters: EBU 3.5 guide Findings: For full details of patient's coronary angiography please see cath report dictated by Dr. Quinones. Briefly, patient found to have intermediate mid LAD disease. Decision to further evaluate with FFR. FFR procedure: -Left main cannulated with EBU 3.5 guide -Investment Analyst 50 wire placed into distal LAD -ACIST Catheter placed across stenosis -Pd/Pa 0.89 -FFR 0.75 -decision to proceed with PCI PCI procedure: Mid LAD lesion predilated with 2.0 compliant balloon Dilated lesion stented with 2.5 x 15 mm Bj drug-eluting stent Stent post-dilated with 2.75 noncompliant balloon IC vasodilators administered for spasm Post procedure ANA 3 flow, stent well expanded with minimal residual stenosis and no apparent cardiac complications. Arterial Closure: TR band Summary: 1. Successful PCI of mid LAD with single drug-eluting stent (2.5 x 15 mm Bj; postdilated with 2.75 NC) Recommendations: To PCU for continued monitoring Reloaded with clopidogrel 300 mg in Slab Inspector Continue extended DAPT. Consult cardiac Rehab Hemodynamics Rest Ao:: 156/61/95 Final Ao: 140/57/80 LV: -- Recommendations Recommendations: PCI without planned CABG Specimens Specimens: None Radiation Exposure (mGy) 2444 Contrast (mls) 140 Fluids (cc crystalloids) Fluids (cc crystalloids): 144 Drains Drains: None Anesthesia Moderate sedation. Start 0859. End 09. Sedation monitor: MIROSLAVA Story Procedural Complication(s) None Disposition PCU I attest to the content of the Intraoperative Record and any orders documented therein. Any exceptions are noted below. [facility] Card Cath Procedure Codes Cardiac Catheterization Procedure 1: Cardiovascular Cath Procedures: 16682 (Doppler) Pressure Wire Moderate Sedation Procedure 1: Sedation/Anesthesia: 81083 Mod Sedation by the same physician; Ea Addition al15 Minutes Stenting Procedure 1: Cardiovascular Stent Procedures: 18559 Perc transcatheter placement of intracoronary stent(s), with ang PG Care Time/CCT Total # of Minutes Spent Total Time Spent with Patient: Total time spent is greater than 50% in coordination of care (as documented) at patient's floor/unit and/or counseling patient:
[2020-12-26] MEDS ORDERED: ACETAMINOPHEN 325 MG TAB PO PRN (13:26)
[2020-12-26] MEDS ORDERED: DICLOFENAC SOD 1% GEL 100 GM TUBE EXT PRN (13:29)
[2020-12-26] MEDS ORDERED: SODIUM CHLORIDE 0.9% 1000ML 1,000 ML IV SCH (13:30)
[2020-12-26] MEDS ORDERED: GLUCOSE 10 TABS/TUBE PO PRN (13:33)
[2020-12-26] MEDS ORDERED: CARBOHYDRATES FOR HYPOGLYCEMIA PO PRN (13:33)
[2020-12-26] MEDS ORDERED: GLUCOSE 40% GEL 15 GM TUBE PO PRN (13:33)
[2020-12-26] MEDS ORDERED: DEXTROSE 50% 50 ML SYRINGE IV PRN (13:33)
[2020-12-26] MEDS ORDERED: GLUCAGON FOR INJ 1 MG VIAL SQ PRN (13:33)
[2020-12-26] MEDS ORDERED: NITROGLYCERIN SL 0.4 MG/TAB TAB SL PRN (13:45)
[2020-12-26] MEDS ORDERED: ZOLPIDEM TARTRATE 10 MG TAB PO PRN (13:50)
--- NOTE | 2020-12-26 15:15 | Consultation ---
Date of Consultation December 26, 2020 Assessment & Plan (1) S/P coronary artery stent placement: (2) CAD (coronary artery disease): This is a 65-year-old female who has significant past medical history of CAD, T2DM, HTN, HLD, right carotid stenosis, CKD stage III, chronic pain syndrome, depression with anxiety, insomnia, history of breast cancer status post mastectomy, history of cerebral aneurysm status post coil embolization who presents for elective cardiac catheterization. Patient was found to have 70% mid LAD in which patient underwent successful PCI with single drug-eluting stent. s/p NICOLE to mid LAD by Dr. Oneil continue monitoring on PCU loaded with clopidogrel continue DAPT with clopidgrel and ASA continue current cardiac medications including metoprolol, irbesartan, crestor, asa, plavix cardiac rehab consulted pt c/o mild GERD - will give IV pepcid x 1 and re -evaluate repeat ECG similar to post cath - no change (3) T2DM (type 2 diabetes mellitus): Well controlled, last A1c 5.4 on 07/26/2020 Obtain A1c in the a.m. Hold Metformin and Actos Novolog correction ordered; BSG 101, if BSG were to increase recommend adding carb coverage and lantus (4) CKD (chronic kidney disease) stage 3, GFR 30-59 ml/min: Baseline creatinine 1.0 Avoid nephrotoxic agents (5) HTN (hypertension): Blood pressure stable Continue irbesartan, amlodipine, metoprolol HCTZ currently on hold (6) HLD (hyperlipidemia): Continue statin (7) Sinus bradycardia: chronic monitor, on low dose metoprolol (8) Carotid stenosis, right: h/o R sided common Carotid artery stent, patent per duplex 2019 (9) Depression with anxiety: Mood stable Continue Zoloft (10) DVT prophylaxis: TEDS, loaded with clopidogrel 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 Brand, please see addendum Supervising Physician Co-Signing Physician Notes Attending addendum: The patient was seen and examined in telemetry unit She is a status post elective cardiac cath and stent placement in LAD She has significant history of CAD and status post multiple stent placed in past She remains free of any chest pain or palpitation or shortness of breath but complains to have some dyspeptic symptoms On examination Lying in bed comfortably Hemodynamically stable Chestclear to auscultate bilaterally HeartS1-S2, no murmur appreciated Abdomen-benign Extremities-trace edema bilateral 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 No focal sensory and motor deficit appreciated Her labs, EKG and imaging studies reviewed Has significant CAD, underwent elective cath with stent placement in the LAD Was given loaded Plavix and will have dual antiplatelet therapy on discharge Remains medically stable Cardiology has been consulted Agree with assessment and plan as outlined above by CHAUNCEY Del Real DR History of Present Illness Requesting Physician: Dr. Oneil Reason for Consultation: Post cardiac cath medical management Attending Physician: Bjorn Quinones DO History of Present Illness This is a 65-year-old female who has significant past medical history of CAD, T2DM, HTN, HLD, right carotid stenosis, CKD stage III, chronic pain syndrome, depression with anxiety, insomnia, history of breast cancer status post mastectomy, history of cerebral aneurysm status post coil embolization who presents for elective cardiac catheterization. Patient was found to have 70% mid LAD in which patient underwent successful PCI with single drug-eluting stent. Post cardiac catheterization she did have episode of chest pain was reevaluated by time piece repairer Dr. Fregoso. Sx resolved and ecg was mos tly unchanged. She is currently seen in room 234-1. Post operatively she c/o, "heart burn." She c/o burning in her throat and substernal. Similar sx to post cath that went away on own. Had hx of heart burn with back in earlier 1999, but doesn't recall having any since. Otherwise she denies any f/c/s, dizziness, lightheaded, chest pain, cough, uri sx, n/v/d, abdominal pain, dysuria, increased urg/freq with urination, melena or hematochezia. She took all meds prior to arrival except metformin, hctz and actos. Of significance she does have past cardiac hx dating back to 1999. She had 2 stents placed in 200 to RCA and L cx and 2003 she had LAD stent. Cath in 2010 70% circumflex distal to previous stent w/o intervention. Sx managed medically since then. She was undergoing pre op testing for knee replacement in January when she complained of stress induced anginal sx with anterolateral t wave changes noted on ecg. Elective cardiac cath was scheduled. Allergies Allergy/AdvReac Type Severity Reaction Status Date / Time No Known Drug Allergies Allergy Unknown . Verified 12/26/20 07:44 adhesive AdvReac Unknown RASH Verified 12/26/20 07:44 Home Medications Medication Instructions Recorded Confirmed Type Isosorbide Mononitrate Ext Rel 60 mg PO QAM #0 tab 03/22/13 12/26/20 History (Imdur Ext Rel) Metoprolol Succinate (TOPROL XL) 25 mg PO QAM #30 tab 03/22/13 12/26/20 History NITROGLYCERIN (NITROSTAT) 0.4 mg UT PRN #0 btl 03/22/13 12/26/20 History PIOGLITAZONE HCL (ACTOS) 45 mg PO QAM #0 tab 03/22/13 12/26/20 History Sertraline (Zoloft) 50 mg PO QAM #0 tab 04/08/13 12/26/20 History Amlodipine (Norvasc) 10 mg PO QAM #0 tab 11/15/13 12/26/20 History Cetirizine (Zyrtec) 10 mg PO DAILY PRN #0 tab 02/23/14 12/26/20 History Clopidogrel (Plavix) 75 mg PO QAM #0 tab 02/23/14 12/26/20 History Folic Acid 1 mg PO QAM #0 02/23/14 12/26/20 History METFORMIN HCL (GLUCOPHAGE) 850 mg PO TID #0 tab 07/12/14 12/26/20 History ZOLPIDEM TARTRATE (AMBIEN ER) 12.5 mg PO HS #0 tab 11/20/15 12/26/20 History Gabapentin (Neurontin) 300 mg PO BID #0 cap 02/06/17 12/26/20 History cyanocobalamin (vitamin B-12) 1,000 mcg SUBLINGUAL DAILY 12/26/20 12/26/20 History diclofenac sodium 1 % topical gel 4 g TOPICAL QID 12/26/20 12/26/20 History ferrous sulfate 325 mg (65 mg 325 mg PO DAILY 12/26/20 12/26/20 History iron) tablet hydrochlorothiazide 12.5 mg tablet 12.5 mg PO DAILY 12/26/20 12/26/20 History irbesartan 300 mg tablet 300 mg PO DAILY 12/26/20 12/26/20 History meloxicam 15 mg tablet 15 mg PO DAILY 12/26/20 12/26/20 History pantoprazole 40 mg tablet,delayed 40 mg PO DAILY 12/26/20 12/26/20 History release rosuvastatin 40 mg tablet 40 mg PO DAILY 12/26/20 12/26/20 History Patient History Medical History (Updated 12/26/20 @ 16:08 by Liliam Garnett PA-C) CAD (coronary artery disease) Carotid stenosis, right Chronic pain CKD (chronic kidney disease) stage 3, GFR 30-59 ml/min Depression with anxiety GERD (gastroesophageal reflux disease) History of left breast cancer HLD (hyperlipidemia) HLD (hyperlipidemia) HTN (hypertension) Morbid obesity Sinus bradycardia T2DM (type 2 diabetes mellitus) Surgical History (Updated 12/26/20 @ 15:30 by Liliam Garnett PA-C) History of cholecystectomy History of coronary artery stent placement History of fracture of lower leg Distal tib, tib-fib S/P coil embolization of cerebral aneurysm S/P mastectomy Social History Smoking Status: Former smoker Hx Alcohol Use: Yes Alcohol type: hard liquor Hx Substance Use: No Preferred Language: Pakistani Communication Ability: Effective Mill Recorder Required: No Beliefs That Will Affect Care: None Current Living Situation: Spouse Feels Safe at Home: Yes Safety Concerns: Feels Safe At This Time Assistive Devices: None Review of Systems Review of Systems: All systems reviewed & are unremarkable except as noted in HPI & below Physical Exam Physical Exam: Constitutional: WD/WN, vitals as above, NAD, sitting up in bed, pleasant, conversing easily Head: Normocephalic, Atraumatic Eyes: PERRL, conjunctivae normal, anicteric sclerae ENMT: external ear and nose normal, oropharynx normal Neck: trachea midline, no thyromegaly normal visual inspection Respiratory: normal respiratory effort, lungs clear to auscultation, no wheeze, rales, rhonchi. Normal insp/exp effort, no accessory muscle use Cardiovascular: RRR, no murmur, no edema , R wrist radial band in place, Vessels: no JVD or carotid bruit Chest: normal inspection of chest Abdomen: normal bowel sounds, soft, nontender, no hepatosplenomegaly Musculoskeletal: no cyanosis or clubbing, extremities motor strength 5/5 Skin: no rashes, warm and dry normal turgor Neurologic: PERRL, EOMI, accommodation nl, no face palsy, no dysarthria CN's II-XI intact bilaterally and moves all extremities Psychiatric: A+Ox3, euthymic affect Lymphatic: no cervical or axillary lymphadenopathy : deferred Results & Data ([facility]) Vital Signs (Past 12 Hours) Vital Signs Temp Pulse Resp BP Pulse Ox 12/26/20 14:45 36.6 C 50 L 16 119/68 93 12/26/20 14:00 36.8 C 54 L 16 107/73 93 12/26/20 13:00 37.2 C 54 L 16 122/66 95 12/26/20 12:27 37 C 54 L 16 120/73 96 12/26/20 12:00 36.6 C 53 L 18 125/75 94 12/26/20 11:28 36.6 C 60 16 157/72 H 90 12/26/20 11:15 36.6 C 56 L 16 142/73 H 94 12/26/20 10:58 36.6 C 53 L 16 144/80 H 94 12/26/20 10:45 36.6 C 57 L 16 149/81 H 94 12/26/20 10:10 55 L 18 168/78 H 95 12/26/20 09:55 55 L 18 156/78 H 94 12/26/20 09:40 58 L 18 165/85 H 94 12/26/20 07:21 36.9 C 60 16 156/81 H 96 Laboratory Results Preop labs 12/26/2020 NA 141, K 4.5, Chl 104, bun 24, Cr 1.0, glucose 124 CBC: h/h 13.7/41.3, plt 227, wbc 4.17 Echo 12/15/20: EF 55%, mild av sclerosis, left atrium enlarged, mild MR, mild TR Diagnostic Findings Cardiac Cath: PCI procedure: Mid LAD lesion predilated with 2.0 compliant balloon Dilated lesion stented with 2.5 x 15 mm Bj drug-eluting stent Stent post-dilated with 2.75 noncompliant balloon IC vasodilators administered for spasm Post procedure ANA 3 flow, stent well expanded with minimal residual stenosis and no apparent cardiac complications. Arterial Closure: TR band Summary: 1. Successful PCI of mid LAD with single drug-eluting stent (2.5 x 15 mm [place]; postdilated with 2.75 NC) Recommendations: To PCU for continued monitoring Reloaded with clopidogrel 300 mg in Contract Coordinator Continue extended DAPT. Consult cardiac Rehab Medications Administered Medication List Sodium Chloride (Nss 1000ml) 1,000 mls @ 100 mls/hr IV .Q10H [facility] Stop: 12/26/20 18:29 Last Admin: 12/26/20 14:25 Dose: 100 mls/hr Documented by: [id number] Discontinued Medications Adenosine (Adenosine Iv Soln 3 Mg/Ml 20 Ml Vial) Confirm Administered Dose 120 mg IV .STK-MED ONE Stop: 12/26/20 09:00 Last Admin: 12/26/20 09:53 Dose: 45 mg Documented by: [id number] Clopidogrel Bisulfate (Clopidogrel Bisulfate 300 Mg Tab) Confirm Administered Dose 300 mg .ROUTE .STK-MED ONE Stop: 12/26/20 09:31 Last Admin: 12/26/20 09:54 Dose: 300 mg Documented by: [id number] Fentanyl Citrate (Fentanyl Citrate 100 Mcg/2 Ml Vial) Confirm Administered Dose 100 mcg .ROUTE .STK-MED ONE Stop: 12/26/20 08:06 Last Admin: 12/26/20 09:46 Dose: 25 mcg Documented by: [id number] Heparin Sodium (Porcine) (Heparin (Porcine) 1000 Unit/Ml 10 Ml (Contract Coordinator Use Only)) Confirm Administered Dose 10,000 units .ROUTE .STK-MED ONE Stop: 12/26/20 08:06 Last Admin: 12/26/20 09:52 Dose: 9,000 units Documented by: [id number] Heparin Sodium/Sodium Chloride (Heparin In Nss Infusion 1000 Unit/500 Ml (2 U/Ml) Bag) Confirm Administered Dose 3,000 units IV .STK-MED ONE Stop: 12/26/20 08:06 Last Admin: 12/26/20 09:52 Dose: 3,000 units Documented by: [id number] Midazolam HCl (Midazolam Hcl 1 Mg/Ml 2ml Vial) Confirm Administered Dose 2 mg .ROUTE .STK-MED ONE Stop: 12/26/20 08:06 Last Admin: 12/26/20 09:52 Dose: 3 mg Documented by: [id number] Midazolam HCl (Midazolam Hcl 1 Mg/Ml 2ml Vial) Confirm Administered Dose 2 mg .ROUTE .[employer]-GIDEEN ONE Stop: 12/26/20 08:51 Last Admin: 12/26/20 09:53 Dose: Not Given Documented by: [id number] Nicardipine HCl (Nicardipine Hcl Inj 2.5 Mg/Ml 10 Ml Amp) Confirm Administered Dose 25 mg .ROUTE .PageFair ONE Stop: 12/26/20 08:06 Last Admin: 12/26/20 09:53 Dose: 25 mg Documented by: [id number] Nitroglycerin/Dextrose (Nitroglycerin/D5w 100mcg/Ml 20ml Syr) Confirm Administered Dose 2,000 mcg .ROUTE .PageFair ONE Stop: 12/26/20 08:07 Last Admin: 12/26/20 09:53 Dose: 2,000 mcg Documented by: [id number] ECG Rate (beats per minute): 59 Rhythm: sinus bradycardia Findings: + T-wave inversion (v3-v5)
--- NOTE | 2020-12-26 15:49 | Electrocardiogram Report ---
Test Reason : Blood Pressure : / mmHG Vent. Rate : 059 BPM Atrial Rate : 059 BPM P-R Int : 274 ms QRS Dur : 090 ms QT Int : 466 ms P-R-T Axes : 076 -08 007 degrees QTc Int : 461 ms Sinus bradycardia with sinus arrhythmia with 1st degree A-V block Cannot rule out Inferior infarct (cited on or before 24-JUN-2017) T wave abnormality, consider anterolateral ischemia Abnormal ECG When compared with ECG of 24-JUN-2017 12:50, T wave inversion now evident in Anterolateral leads Confirmed by Dawit Dempsey ([id number]) on 12/26/2020 3:48:39 PM Referred By: Bjorn Quinones Confirmed By:Dawit Dempsey
[2020-12-26] MEDS ORDERED: FAMOTIDINE 20MG IV PUSH 20 MG/5 ML SYR IV STA (15:56)
--- NOTE | 2020-12-26 16:10 | Electrocardiogram Report ---
Test Reason : Blood Pressure : / mmHG Vent. Rate : 054 BPM Atrial Rate : 054 BPM P-R Int : 276 ms QRS Dur : 090 ms QT Int : 472 ms P-R-T Axes : 000 -14 013 degrees QTc Int : 447 ms Sinus bradycardia with sinus arrhythmia with 1st degree A-V block Inferior infarct (cited on or before 24-JUN-2017) T wave abnormality, consider anterolateral ischemia Abnormal ECG When compared with ECG of 26-DEC-2020 09:55, No significant change was found Confirmed by Dawit Dempsey ([id number]) on 12/26/2020 4:10:08 PM Referred By: Bjorn Quinones Confirmed By:Dawit Dempsey
[2020-12-26] MEDS: INSULIN ASPART 100 UNITS/ML 3 ML PEN SC SCH ×2 (16:45→20:32)
[2020-12-26] MEDS ORDERED: ATROPINE SULFATE 0.1 MG/ML 10ML SYR IV ONE (19:52)
[2020-12-26] MEDS: GABAPENTIN 300 MG CAP PO SCH (19:54)
--- NOTE | 2020-12-26 20:23 | Communication Note ---
Date of Service: December 26, 2020 Received call from nursing. Pateint asymptomatic in bed watching television. Sinus bradycardia mostly in the 50s noted, occational HR down to 30s. EKG at 1537 was stable, SB in th 50s, long first degree AVB. She has received her chronic dose of metoprolol 25 mg today. Plan, monitor, no intervention at present. Will obtain EKG in am. May need to adjust her beta paco dose prior to discharge.
[2020-12-27 07:55] LABS: Basophils # (auto) 0.02 K/uL (0-0.2); Basophils % (auto) 0.4 %; Eosinophils # (auto) 0.22 K/uL (0-0.5); Eosinophils % (auto) 4.2 %; Hematocrit (blood only) 40.7 % (37-47); Hemoglobin 13.6 g/dL (12.0-16.0); Immature Granulocytes # (auto) 0.01 K/uL (0.00-0.02); Immature Granulocytes % (auto) 0.2 %; Lymphocytes # (auto) 1.36 K/uL (1.2-3.4); Lymphocytes % (auto) 25.8 %; Mean Corpuscular Hemoglobin 31.3 pg (25-34); Mean Corpuscular Hgb Conc 33.4 g/dL (32-36); Mean Corpuscular Volume 93.8 fL (80-100); Mean Platelet Volume 10.7 fL (7.4-10.4); Monocytes # (auto) 0.86 K/uL (0.11-0.59); Monocytes % (auto) 16.3 %; Neutrophils # (auto) 2.81 K/uL (1.4-6.5); Neutrophils % (auto) 53.1 %; Platelet Count 227 K/uL (130-400); RDW Coefficient of Variation 14.3 % (11.5-14.5); RDW Standard Deviation 49.5 fL (36.4-46.3); Red Blood Count 4.34 M/uL (4.2-5.4); White Blood Count 5.28 K/uL (4.8-10.8)
[2020-12-27] MEDS: INSULIN ASPART 100 UNITS/ML 3 ML PEN SC SCH ×2 (08:03→11:56)
[2020-12-27 08:29] LABS: BUN Creatinine Ratio 17.7 (10-20); Calcium 9.5 mg/dl (8.5-10.1); Creatinine Clr Calc Pharmacy 56.3 ml/min; Est GFR (African American) 59.5 ml/min; Est GFR (Non-African American) 51.3 ml/min; Potassium 4.3 mmol/L (3.5-5.1)
[2020-12-27] MEDS: GABAPENTIN 300 MG CAP PO SCH (08:32)
[2020-12-27] MEDS ORDERED: FERROUS SULFATE 325 MG TAB PO SCH (09:00)
[2020-12-27] MEDS ORDERED: ROSUVASTATIN CALCIUM 20 MG TAB PO SCH (09:00)
[2020-12-27] MEDS ORDERED: CLOPIDOGREL BISULFATE 75 MG TAB PO SCH (09:00)
[2020-12-27] MEDS ORDERED: IRBESARTAN 150 MG TAB PO SCH (09:00)
[2020-12-27] MEDS ORDERED: ISOSORBIDE MONO EXTENDED REL 60 MG TABCR PO SCH (09:00)
[2020-12-27] MEDS ORDERED: ASPIRIN 81 MG ECTAB PO SCH (09:00)
[2020-12-27] MEDS ORDERED: amLODIPine BESYLATE 5 MG TAB PO SCH (09:00)
[2020-12-27] MEDS ORDERED: METOPROLOL SUCC 25MG EXT REL TAB PO SCH (09:00)
[2020-12-27] MEDS ORDERED: FOLIC ACID 1 MG TAB PO SCH (09:00)
[2020-12-27] MEDS ORDERED: CYANOCOBALAMIN 500 MCG TABLET (VITAMIN B-12) PO SCH (09:00)
[2020-12-27] MEDS ORDERED: PANTOprazole 40 MG TAB PO SCH (09:00)
[2020-12-27] MEDS ORDERED: SERTRALINE HCL 50 MG TABLET PO SCH (09:00)
[2020-12-27 09:50] LABS: Estimated Average Glucose 120 mg/dl; Hemoglobin A1C 5.8 % (4.5-5.6)
[2020-12-27] MEDS ORDERED: ONDANSETRON INJ 2 MG/ML 2 ML VIAL IV PRN (10:55)
--- NOTE | 2020-12-27 11:07 | Cardiology Progress Note ---
Date of Service December 27, 2020 Assessment & Plan (1) Status post insertion of drug-eluting stent into left anterior descending (LAD) artery: Plan: Continue dual antiplatelet therapy for minimum of 6 months post percutaneous intervention. Patient understands elective orthopedic surgery (knee replacement) will be postponed until early 2021. (2) Mobitz type 1 second degree AV block: Plan: Telemetry reviewed demonstrating intermittent second-degree AV block, likely Mobitz type I. No associated lightheadedness, dizziness, syncope, or near syncope. Nausea and retching reported over the past 18 hours. I suspect secondary to increased vagal tone. Recommend reducing Toprol-XL to 12.5 mg daily. Outpatient 7-day ZIO monitor for further assessment. (3) Nausea: Plan: IV Zofran as needed. (4) HTN (hypertension): Plan: Continue current medications, monitor. Sodium restriction advised. Admission and Anticipated Discharge Date Admission Date: December 26, 2020 Subjective Patient seen examined the bedside. Feeling well from a cardiovascular perspective. Reports mild nausea over the past 18 hours.+ Retching without vomiting. No chest discomfort. Repeat ECG unchanged. Concerns regarding intermittent bradycardia overnight. Telemetry strips reviewed demonstrating second-degree AV block, likely Mobitz type I. A.m. metoprolol held. Patient denies any lightheadedness, dizziness, syncope, or near syncope. Review of Systems Review of Systems: All systems reviewed & are unremarkable except as noted in Subjective Physical Exam Constitutional: WD/WN, vitals as above ENMT: Mallampati Class: III Respiratory: normal respiratory effort, lungs clear to auscultation Cardiovascular: RRR, no murmur, no edema Vessels: femoral pulses present and radial pulses present (Mild right forearm ecchymosis, no hematoma.) Extremities: no edema Gastrointestinal (Abdomen): Inspection/Auscultation: abdomen normal to inspection and normal bowel sounds; abdomen not distended Percussion/Palpation: abdomen soft; abdomen nontender, no guarding and abdomen not rigid Neurologic: moves all extremities and awake; no focal motor deficits Motor/Sensory: no tremor Psychiatric: A+Ox3, euthymic affect Results & Data ([facility]) Vital Signs (Past 12 Hours) Vital Signs Temp Pulse Pulse Resp BP Pulse Ox 12/27/20 08:00 54 L 12/27/20 07:16 37 C 56 L 18 166/88 H 97 12/27/20 04:44 36.9 C 54 L 18 129/73 95 12/27/20 00:00 56 L 12/26/20 23:48 37.2 C 60 18 142/60 H 96
--- NOTE | 2020-12-27 11:21 | Discharge Summary ---
Date of Service December 27, 2020 Admission HPI Per Admitting Provider Patient presented for elective cardiac catheterization. Evaluate in the outpatient clinic for preoperative risk assessment prior to hip surgery. Patient reported anginal symptoms with emotional stress during that visit. ECG with new anterior T wave inversions suggesting ischemia. Cardiac catheterization recommended for further stratification. Principal Diagnosis Coronary artery disease status post drug-eluting stent implantation to the left anterior descending artery. Second-degree AV block Mobitz type I. Discharge Exam Constitutional WD/WN, vitals as above ENMT Mallampati Class: III Respiratory normal respiratory effort, lungs clear to auscultation Cardiovascular RRR, no murmur, no edema Vessels: femoral pulses present and radial pulses present (Mild right forearm ecchymosis, no hematoma.) Extremities: no edema Gastrointestinal (Abdomen) Inspection/Auscultation: abdomen normal to inspection and normal bowel sounds; abdomen not distended Percussion/Palpation: abdomen soft; abdomen nontender, no guarding and abdomen not rigid Neurologic moves all extremities and awake; no focal motor deficits Motor/Sensory: no tremor Psychiatric A+Ox3, euthymic affect Discharge Data Allergies Allergy/AdvReac Type Severity Reaction Status Date / Time No Known Drug Allergies Allergy Unknown . Verified 12/26/20 07:44 adhesive AdvReac Unknown RASH Verified 12/26/20 07:44 Consultations 12/26/20 13:29 Consult Cardiac Rehabilitation Routine 12/26/20 13:32 Consult Hospitalist Routine Procedures Performed Operation Date: 12/26/20 08:00 Actual Procedures s Cath, Left with Cors and Vent - Bjorn O Joni, DO p Drug [place] [facility] [place] Mateo Oneil MD s Fraction Flow [facility] - Mateo Oneil MD Ordered Studies 12/26/20 06:20 CL Cath Imgs for PACS use only Routine Hospital Course (1) Status post insertion of drug-eluting stent into left anterior descending (LAD) artery: Drug-eluting stent implanted to the mid left anterior descending artery 12/26/2020 without complication. Continue dual antiplatelet therapy for minimum of 6 months post percutaneous intervention. Patient understands elective orthopedic surgery (knee replacement) will be postponed until early 2021. (2) Mobitz type 1 second degree AV block: Telemetry reviewed demonstrating intermittent second-degree AV block, likely Mobitz type I. No associated lightheadedness, dizziness, syncope, or ne ar syncope. Nausea and retching reported over the past 18 hours. I suspect secondary to increased vagal tone. Recommend reducing Toprol-XL to 12.5 mg daily. Outpatient 7-day ZIO monitor for further assessment. (3) Nausea: IV Zofran as needed. (4) HTN (hypertension): Continue current medications, monitor. Sodium restriction advised. Total Time Total Time Spent Total Time Spent (In Minutes): 30 Discharge Plan Discharge Items Patient Disposition: Home - Self-Care Reason For Visit: CAD, Precordial pain Discharge Diagnosis: Coronary artery disease status post drug-eluting stent implantation to the left anterior descending artery. Second-degree AV block Mobitz type I associated with nausea and retching. 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 * Do not drive or operate any motorized equipment for the next three days. * Limit stair usage (2 or 3 trips a day only) for the next three days. * Do not lift anything heavier than 10 pounds for the next three days. * Do not engage in vigorous exercise or any sports for the next five days. * You may shower the day after your procedure, but do not immerse the area for three days. Cleanse the site gently with soap and water. SPECIAL CARE INSTRUCTIONS: * You may replace the pressure dressing or band-aid the morning after the procedure. * After your procedure, it is normal to have a small bruise or small lump at the site. Examine your site daily for any change in the bruise or lump, redness, swelling, drainage or numbness. Notify your doctor if any change. BLEEDING: * If there is a small amount of bleeding at the site, lie down and apply firm pressure with a clean cloth for ten minutes. When the bleeding stops, lie quietly keeping the procedure limb straight for six hours. Notify your doctor as soon as possible. * If the bleeding does not stop after ten minutes or if there is a large amount of bleeding or spurting, call 911 immediately. Continue to lie down and hold firm pressure until help arrives. SKIN IRRITATION: * You may experience some redness and/or swelling in the area where radiation was administered. If any skin irritation occurs, please contact your family physician. FOLLOW UP VISIT: Keep any scheduled doctor appointments. Pending Studies at Discharge: Yes Studies:: EVARISTOO monitor. Will order during follow up. Stand-Alone Forms: My [facility], Smoking Cessation Medications and DC Order Prescriptions: New clopidogrel 75 mg Tablet 75 mg PO QAM Qty: 34 RF: 0 metoprolol succinate [Toprol XL] 25 mg tablet extended release 24 hr 12.5 mg PO DAILY Qty: 30 RF: 6 Continued Isosorbide Mononitrate Ext Rel (Imdur Ext Rel) 60 MG EXT REL TAB 60 mg PO QAM Qty: 0 RF: 0 NITROGLYCERIN (NITROSTAT) 0.4 MG SUB 0.4 mg UT PRN Qty: 0 RF: 0 PIOGLITAZONE HCL (ACTOS) 45 MG tablet 45 mg PO QAM Qty: 0 RF: 0 Sertraline (Zoloft) 50 MG tablet 50 mg PO QAM Qty: 0 RF: 0 Amlodipine (Norvasc) 10 MG tablet 10 mg PO QAM Qty: 0 RF: 0 Cetirizine (Zyrtec) 10 MG tablet 10 mg PO DAILY PRN (Reason: Cough) Qty: 0 RF: 0 Folic Acid 1 MG tablet 1 mg PO QAM Qty: 0 RF: 0 Clopidogrel (Plavix) 75 MG tablet 75 mg PO QAM Qty: 0 RF: 0 METFORMIN HCL (GLUCOPHAGE) 850 MG tablet 850 mg PO TID Qty: 0 RF: 0 ZOLPIDEM TARTRATE (AMBIEN ER) 12.5 MG tablet 12.5 mg PO HS Qty: 0 RF: 0 Gabapentin (Neurontin) 300 MG capsule 300 mg PO BID Qty: 0 RF: 0 meloxicam 15 mg Tablet 15 mg PO DAILY RF: 0 pantoprazole 40 mg Tablet,Delayed Release (Dr/Ec) 40 mg PO DAILY RF: 0 ferrous sulfate 325 mg (65 mg iron) Tablet 325 mg PO DAILY RF: 0 irbesartan 300 mg Tablet 300 mg PO DAILY RF: 0 rosuvastatin 40 mg Tablet 40 mg PO DAILY RF: 0 hydrochlorothiazide 12.5 mg Tablet 12.5 mg PO DAILY RF: 0 diclofenac sodium 1 % Gel 4 g TOPICAL QID RF: 0 cyanocobalamin (vitamin B-12) 1,000 mcg sublingual DAILY RF: 0 Discontinued Metoprolol Succinate (TOPROL XL) 25 MG [id number] 25 mg PO QAM Qty: 30 RF: 0 Discharge Orders: Discharge Order (Routine); Ordered 12/27/20 Ordered By: Bjorn Quinones Admission Data Admit Date/Time: 12/26/20 09:20 Attending Provider: Demetrius Brand Admit Provider: Bjorn Quinones Primary Care Provider: Carmelo Juárez Other Providers: Alexa Victoria ; Bjorn Quinones
--- NOTE | 2020-12-27 13:14 | Hospitalist Progress Note ---
Date of Service December 27, 2020 Assessment & Plan (1) S/P coronary artery stent placement: Plan: As below (2) CAD (coronary artery disease): Plan: This is a 65-year-old female who has significant past medical history of CAD, T2DM, HTN, HLD, right carotid stenosis, CKD stage III, chronic pain syndrome, depression with anxiety, insomnia, history of breast cancer status post mastectomy, history of cerebral aneurysm status post coil embolization who presents for elective cardiac catheterization. Patient was found to have 70% mid LAD in which patient underwent successful PCI with single drug-eluting stent. s/p NICOLE to mid LAD by Dr. Oneil Loaded with clopidogrel Continue DAPT with clopidgrel and ASA Continue current cardiac medications including metoprolol, irbesartan, crestor, asa, plavix Cardiac rehab consulted pt c/o mild GERD - will give IV pepcid x 1 and re -evaluate repeat ECG similar to post cath - no change Noted to have Mobitz type I second-degree heart block without any symptoms Beta-paco dose has been decreased. She will have outpatient Zio patch for 7 days She will be discharged home this afternoon (3) T2DM (type 2 diabetes mellitus): Plan: Well controlled, last A1c 5.8 Hold Metformin and Actos Novolog correction ordered; BSG 101, if BSG were to increase recommend adding carb coverage and lantus (4) CKD (chronic kidney disease) stage 3, GFR 30-59 ml/min: Plan: Baseline creatinine 1.0 Avoid nephrotoxic agents Creatinine remains normal at 1.11 (5) HTN (hypertension): Plan: Blood pressure stable Continue irbesartan, amlodipine, metoprolol HCTZ currently on hold The dose of metoprolol has been decreased to 12.5 mg daily (6) HLD (hyperlipidemia): Plan: Continue statin (7) Sinus bradycardia: Plan: chronic monitor, on low dose metoprolol (8) Carotid stenosis, right: Plan: h/o R sided common Carotid artery stent, patent per duplex 2019 (9) Depression with anxiety: Plan: Mood stable Continue Zoloft (10) DVT prophylaxis: Plan: TEDS, loaded with clopidogrel in [employer] also on DAPT Dispo: PCU PCP: Marquita FULL CODE She will be going home this afternoon Admission and Anticipated Discharge Date Admission Date: December 26, 2020 Subjective The patient was seen and examined in telemetry unit She was noted to have low heart rate at 30 bpm last night which is due to Mobitz type I heart block Denies any symptoms as of this morning She plans to go home this morning Review of Systems Review of Systems: All systems reviewed and are unremarkable except as noted below Cardiovascular: no chest pain and no palpitations Physical Exam Physical Exam: Lying in bed comfortably Constitutional: WD/WN, vitals as above Eyes: PERRL, conjunctivae normal, anicteric sclerae ENMT: external ear and nose normal, oropharynx normal Neck: trachea midline, no thyromegaly Respiratory: normal respiratory effort, lungs clear to auscultation Cardiovascular: Rate/Rhythm: regular rate and regular rhythm Heart Sounds: normal S1 and normal S2 Extremities: no edema Gastrointestinal (Abdomen): normal bowel sounds, soft, nontender, no hepatosplenomegaly Musculoskeletal: no cyanosis or clubbing, extremities motor strength 5/5 Neurologic: PERRL, EOMI, accommodation nl, no face palsy, no dysarthria Psychiatric: A+Ox3, euthymic affect Lymphatic: no cervical or axillary lymphadenopathy Results & Data Results & Data ([facility]) Vital Signs (Past 12 Hours) Vital Signs Temp Pulse Pulse Resp BP Pulse Ox 12/27/20 11:56 36.8 C 56 L 16 145/73 H 96 12/27/20 11:08 36.8 C 56 L 16 145/73 H 96 12/27/20 08:00 54 L 12/27/20 07:16 37 C 56 L 18 166/88 H 97 12/27/20 04:44 36.9 C 54 L 18 129/73 95 Laboratory Results Short CBC 12/27/20 Range/Units 07:26 WBC 5.28 (4.8-10.8) K/uL Hgb 13.6 (12.0-16.0) g/dL Hct 40.7 (37-47) % Plt Count 227 (130-400) K/uL BMP 12/27/20 07:26 Sodium 140 Potassium 4.3 Chloride 108 H Carbon Dioxide 28 BUN 20 H Creatinine 1.11 Glucose 104 H Calcium 9.5 Medications Administered Current Inpatient Medications Acetaminophen (Acetaminophen 325 Mg Tab) 650 mg PO Q4H PRN PRN Reason: MILD Pain (Scale 1,2,3) Stop: 01/25/21 13:25 Amlodipine Besylate (Amlodipine Besylate 5 Mg Tab) 10 mg PO QAM [facility] Stop: 01/26/21 08:59 Last Admin: 12/27/20 08:32 Dose: 10 mg Documented by: Aspirin (Aspirin 81 Mg Ectab) 81 mg PO QAM [facility] Stop: 01/26/21 08:59 Last Admin: 12/27/20 08:31 Dose: 81 mg Documented by: Clopidogrel Bisulfate (Clopidogrel Bisulfate 75 Mg Tab) 75 mg PO QAM [facility] Stop: 01/26/21 08:59 Last Admin: 12/27/20 08:31 Dose: 75 mg Documented by: Cyanocobalamin (Cyanocobalamin 500 Mcg Tablet (Vitamin B-12)) 1,000 mcg PO DAILY [facility] Stop: 01/26/21 08:59 Last Admin: 12/27/20 08:30 Dose: 1,000 mcg Documented by: Dextrose (Dextrose 50% 50 Ml Syringe) 25 - 50 ml IV UD PRN; Protocol PRN Reason: Hypoglycemia Protocol Stop: 01/25/21 13:32 Diclofenac Sodium (Diclofenac Sod 1% Gel 100 Gm Tube) 4 gm EXT QID PRN PRN Reason: Pain Stop: 01/25/21 16:59 Ferrous Sulfate (Ferrous Sulfate 325 Mg Tab) 325 mg PO DAILY [facility] Stop: 01/26/21 08:59 Last Admin: 12/27/20 08:31 Dose: 325 mg Documented by: Folic Acid (Folic Acid 1 Mg Tab) 1 mg PO QAM [facility] Stop: 01/26/21 08:59 Last Admin: 12/27/20 08:30 Dose: 1 mg Documented by: Gabapentin (Gabapentin 300 Mg Cap) 300 mg PO BID [facility] Stop: 01/25/21 20:59 Last Admin: 12/27/20 08:32 Dose: 300 mg Documented by: Glucagon (Glucagon For Inj 1 Mg Vial) 1 mg SQ UD PRN; Protocol PRN Reason: Hypoglycemia Protocol Stop: 01/25/21 13:32 Glucose (Glucose 10 Tabs/Tube) 4 - 8 tabs PO UD PRN; Protocol PRN Reason: Hypoglycemia Protocol Stop: 01/25/21 13:32 Glucose (Glucose 40% Gel 15 Gm Tube) 15 - 30 gm PO UD PRN; Protocol PRN Reason: Hypoglycemia Protocol Stop: 01/25/21 13:32 Insulin Aspart (Insulin Aspart 100 Units/Ml 3 Ml Pen) 0 units SC ACHS [facility] Stop: 01/25/21 16:29 Last Admin: 12/27/20 11:56 Dose: Not Given Documented by: Irbesartan (Irbesartan 150 Mg Tab) 300 mg PO DAILY [facility] Stop: 01/26/21 08:59 Last Admin: 12/27/20 08:30 Dose: 300 mg Documented by: Isosorbide Mononitrate (Isosorbide [place] Extended Rel 60 Mg Tabcr) 60 mg PO QAM [facility] Stop: 01/26/21 08:59 Last Admin: 12/27/20 08:30 Dose: 60 mg Documented by: Metoprolol Succinate (Metoprolol Succ 25mg Ext Rel Tab) 12.5 mg PO QAM [facility] Stop: 01/27/21 08:59 Miscellaneous (Carbohydrates For Hypoglycemia ) 15 - 30 gm PO UD PRN PRN Reason: Hypoglycemia Protocol Stop: 01/25/21 13:32 Nitroglycerin (Nitroglycerin Sl 0.4 Mg/Tab Tab) 0.4 mg SL PRN PRN PRN Reason: CP Stop: 01/25/21 13:44 Ondansetron HCl (Ondansetron Inj 2 Mg/Ml 2 Ml Vial) 4 mg IV Q4H PRN PRN Reason: Nausea Stop: 01/26/21 10:54 Last Admin: 12/27/20 11:44 Dose: 4 mg Documented by: Pantoprazole Sodium (Pantoprazole 40 Mg Tab) 40 mg PO DAILY [facility] Stop: 01/26/21 08:59 Last Admin: 12/27/20 08:31 Dose: 40 mg Documented by: Rosuvastatin Calcium (Rosuvastatin Calcium 20 Mg Tab) 40 mg PO DAILY [facility] Stop: 01/26/21 08:59 Last Admin: 12/27/20 08:30 Dose: 40 mg Documented by: Sertraline HCl (Sertraline Hcl 50 Mg Tablet) 50 mg PO QAM [facility] Stop: 01/26/21 08:59 Last Admin: 12/27/20 08:30 Dose: 50 mg Documented by: Zolpidem Tartrate (Zolpidem Tartrate 10 Mg Tab) 10 mg PO HSZ PRN PRN Reason: Sleep Stop: 01/25/21 13:49
--- NOTE | 2020-12-27 16:23 | Electrocardiogram Report ---
Test Reason : Blood Pressure : / mmHG Vent. Rate : 054 BPM Atrial Rate : 054 BPM P-R Int : 294 ms QRS Dur : 084 ms QT Int : 480 ms P-R-T Axes : 052 007 040 degrees QTc Int : 455 ms Poor data quality, interpretation may be adversely affected Sinus bradycardia with 1st degree A-V block Abnormal ECG When compared with ECG of 26-DEC-2020 15:47, Nonspecific T wave abnormality, improved in Inferior leads Confirmed by Dawit Dempsey ([id number]) on 12/27/2020 4:23:02 PM Referred By: Bjorn Quinones Confirmed By:Dawit Dempsey
[2020-12-28] MEDS ORDERED: METOPROLOL SUCC 25MG EXT REL TAB PO SCH (09:00)
== END 2020-12-27 13:49 | disposition home or self-care (01) ==
LOC: 2S 06:54 → CC 06:54 → SUATTDRO 09:20